=== PATIENT | female | born 1975 | race African-American/Black ===

== ENCOUNTER 2016-12-14 16:20 | Emergency (ER) | payer OTHER ==
--- NOTE | ~2016-12-14 | EKG ---
PATIENT: ELDON MONTANA UNIT #: [id number] Ventricular Rate: 112 BPM Atrial Rate: 112 BPM P-R Interval: 124 ms QRS Duration: 96 ms Q-T Interval: 320 ms QTC Calculation(Bezet): 436 ms P [place]: 53 degrees Calculated R [place]: 22 degrees Calculated T [place]: 41 degrees Diagnosis Line: Sinus tachycardia Diagnosis Line: RSR' or QR pattern in V1 suggests right Diagnosis Line: ventricular conduction delay Diagnosis Line: Non Specific ST Changes- Abnormality Diagnosis Line: Borderline ECG Diagnosis Line: When compared with ECG of 08-DEC-2015 19:37, Diagnosis Line: rate faster Diagnosis Line: Confirmed by SEJAL TELLEZ MD ([id number]) on Diagnosis Line: 12/14/2016 10:23:59 PM INTERPRETING MD: AUGUSTUS
--- NOTE | ~2016-12-14 | CR72 ---
[facility] A Service of [facility] RADIOLOGY TEXT RESULTS PATIENT: ELDON MONTANA LOCATION: [facility] : 79 UNIT #: [id number] AGE: [address]: Rosy Shaw MD SEX: F ORDER DR: [id number] [facility] [address] [place], [place] [address] [id number] MR#: [id number] Acc #: [id number] NAME: ELDON MONTANA. : 1975 SEX: F STUDY DATE/TIME: 12/14/2016 17:17 UNIT: [facility] ROOM: STUDY DESCRIPTION: CR Chest Single View Portable Attending Physician: Rosy Shaw M.D. Ordering Physician: Ed Doc Elvira Villar Primary Care Physician: Primary Care Physician No MEDICAL IMAGING REPORT This report is preliminary unless electronic signature is present EXAM Portable chest HISTORY Chest pain, shortness of air and cough x2 days. FINDINGS Cardiac size and pulmonary vascularity are normal. No infiltrates or effusions. [id number] mid right thoracic curve. IMPRESSION No acute findings. Dictated by... Delio Huntley M.D. THIS IS AN ELECTRONICALLY VERIFIED REPORT Delio Huntley M.D. at 12/15/2016 3:03 PM GAGE/[place] TD: 12/15/2016 05:31 JOB #: [id number] MEDICAL IMAGING REPORT Page 1 of 1 COPY
[~2016-12-14 16:20] MED LIST: ATARAX PO; FLEXERIL PO; KETOPROFEN PO; LORTAB 10-5001 EACH PO; LORTAB 5/500 TA1 TA1 PO; NORVASC; NORVASC PO; ORUDIS75 M1 PO; PREDNISONE PO; VICODIN 5/1 TAB 5/50 PO; VICODIN 5/500 T1 TAB PO; VOLTAREN75 MG PO
[2016-12-14 17:07] LABS: BASOPHIL# 0.1 X10e3 (0-0.3); BASOPHIL% 0.8 % (0-2.5); EOSINOPHIL# 0.6 X10e3 (0-0.7); EOSINOPHIL% 4.2 % (0.0-7.0); HEMATOCRIT 35.1 % (35.0-45.0); HEMOGLOBIN 11.3 gm/dL (12.0-16.0); LYMPHOCYTE# 3.6 X10e3 (1.0-3.5); LYMPHOCYTE% 27.5 % (17.0-45.0); MEAN CELL VOLUME 76.5 FL (83-96); MEAN CORPUSCULAR HEMOGLOBIN 24.7 PG (28-34); MEAN CORPUSCULAR HGB CONC 32.3 g/dL (30-36); MONOCYTE# 0.9 X10e3 (0-1.0); MONOCYTE% 6.6 % (3.0-12.0); NEUTROPHIL# 7.9 X10e3 (1.5-7.1); NEUTROPHIL% 60.9 % (40-75); PLATELET COUNT 289 X10e3 (140-420); RED BLOOD COUNT 4.58 X10e (3.90-5.30); RED CELL DISTRIBUTION WIDTH 17.9 % (11.0-15.5)
[2016-12-14 17:08] LABS: DIFF IND NO
[2016-12-14 17:28] LABS: ALBUMIN SERUM 3.3 g/dL (3.5-5.0); ALKALINE PHOSPHATASE 95 U/L (32-92); ALT (SGPT) 12 U/L (10-40); AST (SGOT) 15 U/L (10-42); BILIRUBIN, DIRECT <0.1 mg/dL (0.0-0.2); BILIRUBIN,TOTAL 0.1 mg/dL (0.2-2.0); BLOOD UREA NITROGEN 7 mg/dL (9-23); BUN/CREATININE RATIO 8.75; CARBON DIOXIDE 26 mmol/L (22-31); CHLORIDE 102 mmol/L (100-111); CREATININE SERUM 0.8 mg/dL (0.6-1.4); GLOM FILT RATE Estimated 107.7 mL/min (>60); GLUCOSE FASTING 121 mg/dL (70-110); POTASSIUM 3.8 mmol/L (3.5-5.1); PROTEIN TOTAL SERUM 8.1 g/dL (6.0-8.3); SODIUM 137 mmol/L (135-145)
[2016-12-14 18:54] LABS: POC - CKMB <1.0 ng/mL (0.0-7.9); POC - TROPONIN <0.05 ng/mL (<=0.05)
[2016-12-14 19:13] LABS: POC - CKMB <1.0 ng/mL (0.0-7.9); POC - TROPONIN <0.05 ng/mL (<=0.05)
== END 2016-12-14 20:35 | disposition home or self-care (01) ==
LOC: CED 16:20
PROVIDERS: Emergency Medicine
DX: R07.89 Other chest pain (principal); Z88.0 Allergy status to penicillin; Z88.6 Allergy status to analgesic agent
CPT/HCPCS: 36415; 71010; 80048; 80076; 82553; 84484; 84703; 85025; 85379; 93005; 99284